=== PATIENT | male | born 1935 | race Caucasian/White ===

== ENCOUNTER → 2019-07-10 10:21 | Outpatient (CLI) | payer MEDICARE, BC, SELFPAY ==
[2019-07-10 12:17] LABS: Hematocrit 37.6 % (40-54); Hemoglobin 12.5 g/dL (13.0-16.5); Mean Corp Hgb Conc 33.2 g/dL (32-36); Mean Corpuscular Hgb 30.3 pg (27.0-32.0); Mean Corpuscular Volume 91.3 fL (80-94); Platelet Count 214 K/mm3 (150-450); RBC Distribution Width CV 12.9 % (11.6-14.6); RBC Distribution Width SD 42.6 fl (35.1-43.9); Red Blood Count 4.12 M/mm3 (4.6-6.2); White Blood Count 7.5 K/mm3 (4.4-11.0)
[2019-07-10 12:29] LABS: AST(SGOT) 14 U/L (15-37); Alanine Aminotransfer ALT/SGPT 20 U/L (16-61); Albumin, Serum 3.8 g/dL (3.2-5.0); Alkaline Phosphatase 60 U/L (45-117); Anion Gap 4 (5-15); BUN 22 mg/dL (7-18); BUN/Creat Ratio 17.1 RATIO (10-20); Calcium,Total 9.1 mg/dL (8.5-10.1); Chloride 106 mmol/L (98-107); Cholesterol 193 mg/dL (200); Creatinine, Serum 1.29 mg/dL (0.70-1.30); EST Glomerular Filtration Rate 57 mL/min (>60); Est Glom Filt Rate - Afr Amer 68 mL/min (>60); Globulin 3.7 g/dL (2.2-4.2); Glucose 165 mg/dL (74-106); High Density Lipoprotein 41 mg/dL; Potassium 4.6 mmol/L (3.5-5.1); Protein, Total 7.5 g/dL (6.4-8.2); Sodium Level 138 mmol/L (136-145); Triglycerides 122 mg/dL; Very Low Density Lipoprotein 24 mg/dL (5-40)
== END ==
PROVIDERS: Family Provider Family Medicine; PCP Family Medicine
DX: E11.65 Type 2 diabetes mellitus with hyperglycemia (principal); I25.10 Atherosclerotic heart disease of native coronary artery without angina pectoris; I10 Essential (primary) hypertension; R06.09 Other forms of dyspnea
CPT/HCPCS: 36415; 80053; 80061; 85027

== ENCOUNTER → 2020-01-31 15:40 | Outpatient (CLI) | payer MEDICARE, BC, SELFPAY ==
--- NOTE | 2020-01-31 15:44 | RAD_ITS ---
STUDY: X-RAY - LUMBAR SPINE REASON FOR EXAM: Male, 84 years old. low back pain TECHNIQUE: 5 view(s) of the lumbar spine were obtained. COMPARISON: None FINDINGS: Normal lumbar lordosis. There is no substantial scoliosis. There is a normal alignment of the vertebrae. There are minor age appropriate changes. Normal vertebral bodies and endplates. Normal disc space heights. The soft tissue structures are unremarkable. There are atherosclerotic indications of the aorta. RAD/L/S Spine Min 4 Views IMPRESSION: Normal x-ray examination of the lumbar spine. Electronically Signed: Arielle Patel, at 20:56 EDT Tel , Service support ,
[2020-01-31 18:33] LABS: Anion Gap 3 (5-15); BUN 21 mg/dL (7-18); BUN/Creat Ratio 15.9 RATIO (10-20); Calcium,Total 9.4 mg/dL (8.5-10.1); Chloride 107 mmol/L (98-107); Cholesterol 207 mg/dL (200); Creatinine, Serum 1.32 mg/dL (0.70-1.30); EST Glomerular Filtration Rate 55 mL/min (>60); Est Glom Filt Rate - Afr Amer 67 mL/min (>60); Glucose 221 mg/dL (74-106); High Density Lipoprotein 39 mg/dL; Sodium Level 139 mmol/L (136-145); Triglycerides 121 mg/dL; Very Low Density Lipoprotein 24 mg/dL (5-40)
== END ==
PROVIDERS: PCP Family Medicine; Referring Provider Family Medicine; Visit Provider Family Medicine
DX: M54.5 Low back pain (principal); E11.65 Type 2 diabetes mellitus with hyperglycemia
CPT/HCPCS: 36415; 72110; 80048; 80061

== ENCOUNTER → 2020-12-19 11:26 | Outpatient (CLI) | payer MEDICARE, BC, SELFPAY ==
--- NOTE | 2020-12-19 11:31 | RAD_ITS ---
STUDY: X-RAY - LUMBAR SPINE REASON FOR EXAM: Male, 85 years old. PAIN IN LEFT LOWER BACK. NO KNOWN RECENT INJURY. TECHNIQUE: 5 view(s) of the lumbar spine were obtained including oblique views. COMPARISON: Comparison is made with prior study of 01/30/2001. FINDINGS: Normal lumbar lordosis. There is no substantial scoliosis. There is a normal alignment of the vertebrae. Mild anterior spondylosis and disc space narrowing at the L3-L4 level. There is atherosclerotic calcification of the abdominal aorta without a demonstrated aneurysm. RAD/L/S Spine Min 4 Views IMPRESSION: Mild degree of disc space narrowing and spondylosis at the L3-L4 level. Electronically Signed: Jay Barnes MD at 15:47 EST , Service support ,
== END ==
PROVIDERS: PCP Family Medicine; Referring Provider Family Medicine; Visit Provider Family Medicine
DX: M54.9 Dorsalgia, unspecified (principal)
CPT/HCPCS: 72110

== ENCOUNTER → 2021-09-11 | Outpatient (CLI) | payer MEDICARE, BC, SELFPAY | END | disposition home or self-care (01) | PROVIDERS: PCP Family Medicine; Referring Provider Family Medicine; Visit Provider Family Medicine | DX: Z20.822 Contact with and (suspected) exposure to COVID-19 (principal) | CPT/HCPCS: 87635; U0005; U0003 ==

== ENCOUNTER 2022-02-10 11:09 | Outpatient (CLI) | payer MEDICARE, BC, SELFPAY ==
[2022-02-10 15:13] LABS: Anion Gap 2 (5-15); BUN 18 mg/dL (7-18); BUN/Creat Ratio 15.9 RATIO (10-20); Chloride 106 mmol/L (98-107); Cholesterol 175 mg/dL (200); Creatinine, Serum 1.13 mg/dL (0.70-1.30); EST Glomerular Filtration Rate 65 mL/min (>60); Est Glom Filt Rate - Afr Amer 79 mL/min (>60); Glucose 172 mg/dL (74-106); High Density Lipoprotein 40 mg/dL; Potassium 4.3 mmol/L (3.5-5.1); Sodium Level 137 mmol/L (136-145); Triglycerides 114 mg/dL; Very Low Density Lipoprotein 23 mg/dL (5-40)
[2022-02-10 15:48] LABS: Microalbumin,Random Urine 12.3 mg/L (NO RANGE EST.); Microalbumin:Creatinine Ratio 15.3 mg/g CRE (<30 mg/g CRE)
== END 2022-02-10 23:59 | disposition home or self-care (01) ==
LOC: MTLAB 11:11
PROVIDERS: PCP Family Medicine; Referring Provider Family Medicine; Visit Provider Family Medicine
DX: E11.9 Type 2 diabetes mellitus without complications (principal)
CPT/HCPCS: 36415; 80048; 80061; 82043; 82570

== ENCOUNTER 2022-07-23 13:09 | Outpatient (RCR) | payer MEDICARE, BC, SELFPAY ==
--- NOTE | 2022-07-24 11:31 | HP.OTEVAL_ITS ---
Patient's Visit Information ALESSIO JARRETT is a 87 year old M, referred to Occupational Therapy by ALEC JOHNS, with a diagnosis of left hand pain/stiffness. Date of Evaluation: 07/23/22 Occupational Therapist: Ada Schuster, OTR/Rajesh, CHT - Subjective This 87 year old male was seen for OT eval with dx of left hand pain and stiff ness- pt states February 2022 he suffered fx of MF metacarpal was cast for 6 weeks and just has not been able to make a fist or get his strength back. pt states he continues to try to mow and do home mtg tasks but very difficult. he would like to return his strength and decrease his pain. - Pain left hand 2 Pain Intensity Range: 2, 3 - ROM Wrist: right 60/55 left 35/35 Opposition: Kapandji opposition scale right 8 left 5 ROM Comments: right composite fist WNL. left 2 away from composite fist - Strength Breaker Machine Tender: right 69# left 15# Lateral Pinch: right 10# left 4# Tripod Pinch: right 14# left 4# - Nine Hole Peg Right: 34.53 Left: 32.15 - Quick DASH-Disab of Arm,Shoulder& Hand Quick DASH Score: 61.3625 - Goals Goal:ROM equal to unaffected hand: Yes Goal:Breaker Machine Tender/Pinch strength at least 75% of unaffected hand: Yes Goal:No pain with affected hand use: Yes - Rehabilitation General Assessment: pt demo with limited ability to form a composite fist and pain in left hand and wrist with tasks- pt would benefit from skilled OT services 1x week for next 6 weeks. Today therapist ed., pt on using heat pack to decrease stiffness- PROM and AROM - pt was given resistive blue sponge to work on strength- pt was given handouts and demo understanding. Pt agrees to POC. Rehabilitation Potential: Good - Anticipated Interventions A/AAROM/PROM, Strengthening, Triggerpoint Release, Modalities, Orthoses, Joint Protection/Energy Conservation, Ergonomic Education, Education re Diagnosis, Caregiver Training, Home Program - Visit Plan Frequency: 1x/Week Duration: 6 Weeks TEXT: Thank you for the opportunity to evaluate your patient. For Medicare and Medicare HMO plans, please review the plan of care and approve it. It will need to be FAXED BACK to us at [phone] for Medicare purposes. Please let me know if there are questions or concerns regarding this plan of care. Physician Signature: Date:
--- NOTE | 2022-10-22 12:26 | HP.OT.NRP ---
ALESSIO JARRETT was seen in my office for initial evaluation on 07/23/22. The following Plan of Care was established for this patient: Initial Frequency: 1x/Week Initial Duration: 6 Weeks Anticipated Interventions: A/AAROM/PROM, Strengthening, Triggerpoint Release, Modalities, Orthoses, Joint Protection/Energy Conservation, Ergonomic Education, Education re Diagnosis, Caregiver Training, Home Program This patient was last seen in our office 07/23/22. Pertinent comments regarding their Occupational therapy will appear below: pt was seen for initial OT eval only. Pt cancelled her follow up visit and no further apts. have been scheduled and due to time lapse in services pt d/c. At this point I will be discontinuing this patient from occupational therapy. I would be happy to see this patient again in the future if found appropriate by the physician. Thank you! Ada Schuster, OTR/L, CHT
== END 2022-07-23 19:00 | disposition home or self-care (01) ==
LOC: OT 13:09
PROVIDERS: PCP Family Medicine
DX: M25.642 Stiffness of left hand, not elsewhere classified (principal); M25.532 Pain in left wrist
CPT/HCPCS: 97166

== ENCOUNTER → 2022-08-06 | Outpatient (CLI) | payer MEDICARE, BC, SELFPAY ==
[2022-08-06 18:09] LABS: Anion Gap 7 (5-15); BUN 24 mg/dL (7-18); BUN/Creat Ratio 16.6 RATIO (10-20); Calcium,Total 9.1 mg/dL (8.5-10.1); Chloride 105 mmol/L (98-107); Cholesterol 177 mg/dL (200); Creatinine, Serum 1.45 mg/dL (0.70-1.30); EST Glomerular Filtration Rate 49 mL/min (>60); Est Glom Filt Rate - Afr Amer 59 mL/min (>60); Glucose 225 mg/dL (74-106); High Density Lipoprotein 44 mg/dL; Potassium 4.7 mmol/L (3.5-5.1); Sodium Level 139 mmol/L (136-145); Triglycerides 82 mg/dL; Very Low Density Lipoprotein 16 mg/dL (5-40)
== END | disposition home or self-care (01) ==
LOC: MTLAB 15:24
PROVIDERS: PCP Family Medicine; Referring Provider Family Medicine; Visit Provider Family Medicine
DX: E11.9 Type 2 diabetes mellitus without complications (principal)
CPT/HCPCS: 36415; 80048; 80061

== ENCOUNTER → 2022-11-02 | Outpatient (CLI) | payer MEDICARE, BC, SELFPAY ==
[2022-11-02 17:56] LABS: Absolute Lymphocyte Count 1.74 X10^3/uL (0.83-4.51); Absolute Neutrophil Count 4.3 X10^3/uL (2.0-7.7); Basophil# 0.09 X10^3/uL; Basophil% 1.3 % (0-1); Eosinophil# 0.21 X10^3/uL; Hematocrit 36.1 % (40-54); Hemoglobin 11.6 g/dL (13.0-16.5); Lymphocyte # 1.74 X10^3/ul (0.83-4.51); Lymphocyte % 25.1 % (19-41); Mean Corp Hgb Conc 32.1 g/dL (32-36); Mean Corpuscular Hgb 30.4 pg (27.0-32.0); Mean Corpuscular Volume 94.5 fL (80-94); Mean Platelet Vol. 11.4 fl (6.2-12.0); Monocyte# 0.59 X10^3/uL; Monocyte% 8.5 % (0-10); NRBC Flagged by Analyzer 0.3 % (0-5); Neutrophil # 4.26 X10^3/uL (2.7-7.7); Neutrophil % 61.7 % (47-70); Platelet Count 234 K/mm3 (150-450); RBC Distribution Width SD 44.8 fl (35.1-43.9); Red Blood Count 3.82 M/mm3 (4.6-6.2); White Blood Count 6.9 K/mm3 (4.4-11.0)
[2022-11-02 18:31] LABS: Anion Gap 6 (5-15); BUN 23 mg/dL (7-18); BUN/Creat Ratio 16.5 RATIO (10-20); Calcium,Total 9.4 mg/dL (8.5-10.1); Chloride 103 mmol/L (98-107); Cholesterol 183 mg/dL (200); Creatinine, Serum 1.39 mg/dL (0.70-1.30); EST Glomerular Filtration Rate 51 mL/min (>60); Est Glom Filt Rate - Afr Amer 62 mL/min (>60); Glucose 184 mg/dL (74-106); High Density Lipoprotein 44 mg/dL; Potassium 4.6 mmol/L (3.5-5.1); Sodium Level 137 mmol/L (136-145); Thyroid Stim Hormone (TSH) 3.18 uIU/mL (0.358-3.74); Triglycerides 107 mg/dL; Very Low Density Lipoprotein 21 mg/dL (5-40)
== END | disposition home or self-care (01) ==
PROVIDERS: PCP Family Medicine; Referring Provider Family Medicine; Visit Provider Family Medicine
DX: R53.83 Other fatigue (principal); E11.9 Type 2 diabetes mellitus without complications
CPT/HCPCS: 36415; 80048; 80061; 84443; 85025

== ENCOUNTER → 2025-02-24 | Outpatient (CLI) | payer MEDICARE, BC, SELFPAY ==
--- NOTE | 2025-02-24 08:07 | MRI_ITS ---
EXAM: Noncontrast MRI of the lumbar spine. CLINICAL HISTORY: Low back pain radiating into both hips for 2 years. Pain worsening over the last 3 months. No specific injury or prior lumbar spine surgery. COMPARISON: Lumbar spine radiographs 02/09/2025 TECHNIQUE: Multi planar, multisequence MRI images of the lumbar spine were obtained without IV contrast. FINDINGS: The study assumes a presence of 5 lumbar type, [id number] vertebral bodies. There is some straightening of the normal lumbar lordosis. Minimal grade 1 retrolisthesis of L3 relative to L4 and L4 relative to L5. The lumbar vertebral bodies are otherwise normal in height, alignment, and marrow signal. No acute fracture or abnormal marrow replacement process of the lumbar spine. The conus terminates at T12-L1. The included lower spinal cord and lower thoracic intervertebral disc spaces show no specific abnormality. On the sagittal localizer images, there appears to have been prior hysterectomy, with fullness of the vaginal cuff/cervix. The remaining included retroperitoneal and paraspinal soft tissues show no specific abnormality. Included portions of the sacrum and SI joints are intact. L1-2: No focal disc herniation, significant central spinal canal, or neural foraminal narrowing. Mild degenerative facet changes. L2-3: Asymmetric right disc bulge causes mild right central spinal canal narrowing. No focal disc herniation. Mild bilateral neural foraminal narrowing and mild degenerative facet changes. L3-4: A diffuse disc bulge along with ligamentum flavum and facet hypertrophy causes severe central spinal canal narrowing (image 14 of the axial T2 sequence). [id number] bilateral neural foraminal narrowing, greatest on the right. Moderate degenerative facet changes. L4-5: Mild disc bulge indents the ventral thecal sac and causes mild central spinal canal narrowing. There is mild narrowing of the right lateral recess due to facet and ligamentum flavum hypertrophy. No focal disc herniation. Moderate bilateral neural foraminal narrowing, greatest on the right. Moderate degenerative facet changes. L5-S1: Mild disc bulge without focal disc herniation or significant central spinal canal narrowing. Mild right and moderate left neural foraminal narrowing. Mild degenerative facet changes. MRI/Spine Lumbar (Routine) IMPRESSION: No acute bony abnormality of the lumbar spine. No abnormal marrow replacement process. 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 There is multifactorial severe central spinal canal narrowing at the L3-4 level. Multilevel degenerative facet changes and neural foraminal narrowing as describ ed level by level above. Suggestion of prior hysterectomy. There appears to be fullness of the vaginal cuff/cervix on the sagittal localizer images. Dedicated pelvic ultrasound or CT is suggested to exclude the possibility of ne oplasm in this location. Reading Location: [facility]
== END | disposition home or self-care (01) ==
LOC: MRI 08:01
PROVIDERS: PCP Family Medicine; Referring Provider Student in an Organized Health Care Education/Training Program; Visit Provider Student in an Organized Health Care Education/Training Program
DX: M51.369 Other intervertebral disc degeneration, lumbar region without mention of lumbar back pain or lower extremity pain (principal)
CPT/HCPCS: 72148